=== PATIENT | female | born 2005 | race Caucasian/White ===

== ENCOUNTER → 2025-01-28 10:26 | Outpatient (REF) | payer OTHER, SELFPAY | LOC: PAVMRI 10:26 | PROVIDERS: ATTENDING PHYSICIAN Student in an Organized Health Care Education/Training Program; FAMILY PHYSICIAN Pediatrics | DX: M54.2 Cervicalgia (principal) | CPT/HCPCS: 72141 ==

== ENCOUNTER 2025-02-03 19:42 | Emergency (ER) | payer OTHER, SELFPAY ==
[2025-02-03 19:46] VITALS: BP 129/94
[2025-02-03 20:06] VITALS: BP 133/86
[2025-02-03 21:00] VITALS: BP 111/80
[2025-02-03 22:00] VITALS: BP 109/68
[2025-02-03] MEDS: VALIUM 5 MG PO (22:41)
--- NOTE | 2025-02-03 22:53 | ED.GENMED ---
History of Present Illness
General
Chief Complaint: Throat Problem
Source: patient and family
Exam Limitations: none
Time Seen by Provider: 02/03/25 21:29
Nursing documentation reviewed up to this point in time: agreed with
History of Present Illness
History of Present Illness:
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
explanation. She has been able to tolerate by mouth but does feel some tightness of her throat when swallowing. Did have a recent neck MRI that did not show any emergent findings.
Review of Systems
Review of Systems
Allergies reviewed?: Yes
All Other Systems: ROS reviewed and negative except as documented in HPI and ROS
Phy Exam
Physical Exam
Physical Exam:
GENERAL: Alert , in no apparent distress
EYE: pupils equal and reactive
NECK: Supple, no significant adenopathy.
ENT: No visible abnormalities o/p clr, mmm.
CARDIAC: Regular rate and rhythm .
LUNGS: Clear breath sounds bilaterally, no acute respiratory distress, no wheezes/rales/rhonchi
ABDOMEN: Soft, without focal tenderness, no r/g, no cvat
NEUROLOGICAL: Alert and oriented, no focal neuro deficits
SKIN: Warm and dry, skin intact.
MUSCULOSKELETAL: No edema, well perfused.
PSYCH: Normal and appropriate interaction.
Course
Orders/Labs/Results
Orders:
Orders
02/03/25 22:22
Diazepam 5 mg PO NOW STA
02/03/25 22:38
Diazepam [Valium] 5 mg PO NOW STA
Vital Signs
Initial and Last Documented VS:
Initial Vital Signs
Temp Pulse Resp BP Pulse Ox
98.4 F 80 15 129/94 99
02/03/25 19:46 02/03/25 19:46 02/03/25 19:46 02/03/25 19:46 02/03/25 19:46
Last Documented Vital Signs
Temp Pulse Resp BP Pulse Ox
98.4 F 80 15 129/94 100
02/03/25 19:46 02/03/25 19:46 02/03/25 19:46 02/03/25 19:46 02/03/25 22:56
MDM/Problems Addressed
MDM/Problems Addressed:
19-year-old female presenting to the emergency department today with concerns of tightness of the face and neck has been ongoing for multiple months and has seen multiple specialist about this. No specialist has been able to give her any
explanation of why she is having symptoms. She currently taking baclofen and a mast cell stabilizer without relief. Has tried amitriptyline in the past as well as an SSRI but had too many side effects and discontinued the medications.
*Pulse Oximetry
SaO2: 100
Oxygen Mode of Delivery: Room air
ED Attending Note
-
Portions of this chart may have been created with voice recognition software.� Occasional wrong word or��sound alike� substitutions may have occurred due to the inherent limitations of voice recognition software.
Discharge Plan
Departure
Patient Disposition: Home (Routine Discharge)
Date of Disposition: 02/03/25
Time of Disposition: 23:01
Patient with high blood pressure during this ER visit?: No
Condition: Good
Covid-19: Not Applicable
Discharge Problem:
Muscle spasm
Referrals:
Casie Loyd, DO [Family Provider, General]
Activity Restrictions/Additional Instructions:
You came to the emergency department today with ongoing symptoms. Here was not clear what is causing your symptoms at this time you will need close outpatient follow-up. Return for any worsening, new or concerning symptoms.
Interventions
Interventions:
*Risk Screen - Suicide Last Done: 02/03/25 19:46
*General Assessment Last Done: 02/03/25 19:46
*Neglect/Abuse Screening Last Done: 02/03/25 19:46
*ED COVID-19 Vaccine History Last Done: 02/03/25 19:46
*ED Influenza Vaccine History Last Done: 02/03/25 19:46
ED-EENT Assessment Last Done: 02/03/25 21:25
ED- Pulmonary Assessment Last Done: 02/03/25 21:25
Discharge Date and Time
Print Language: ESTONIAN
[2025-02-03 23:00] VITALS: BP 115/73
== END 2025-02-03 23:35 | disposition home or self-care (01) ==
LOC: EMR 19:42
PROVIDERS: EMERGENCY PHYSICIAN Student in an Organized Health Care Education/Training Program; FAMILY PHYSICIAN Family Medicine
DX: M62.838 Other muscle spasm (principal); R09.89 Other specified symptoms and signs involving the circulatory and respiratory systems; Z79.899 Other long term (current) drug therapy
CPT/HCPCS: 99283

== ENCOUNTER → 2025-02-06 12:39 | Outpatient (REF) | payer OTHER, SELFPAY | LOC: HWRAD 12:39 | PROVIDERS: ATTENDING PHYSICIAN Otolaryngology; FAMILY PHYSICIAN Family Medicine | DX: J32.9 Chronic sinusitis, unspecified (principal) | CPT/HCPCS: 70486 ==